=== PATIENT | female | born 1990 | race Caucasian/White ===

== ENCOUNTER 2023-11-24 13:53 | Emergency (ER) | payer BC ==
[~2023-11-24] VITALS: Ht 172.7 cm; Wt 117.9 kg
[2023-11-24] MEDS ORDERED: FAMOTIDINE 20 MG/2 ML VIAL IV ONE ×2 (13:58→14:02)
[2023-11-24] MEDS ORDERED: EPINEPHRINE HCL 1:1000 1ML 1 MG/ML AMP ONE (13:58)
[2023-11-24] MEDS ORDERED: DIPHENHYDRAMINE HCL INJ 50 MG/ML VIAL ONE (13:58)
[2023-11-24] MEDS ORDERED: METHYLPREDNISOLONE SOD SUCC 125 MG/2ML VIAL ONE (13:58)
[2023-11-24] MEDS ORDERED: SODIUM CHLORIDE 0.9% 1000ML 1,000 ML ONE (14:03)
[2023-11-24] MEDS: METHYLPREDNISOLONE SOD SUCC 125 MG/2ML VIAL IV ONE (14:12)
[2023-11-24] MEDS: DIPHENHYDRAMINE HCL INJ 50 MG/ML VIAL IV ONE (14:12)
[2023-11-24] MEDS: SODIUM CHLORIDE 0.9% 1000ML 1,000 ML IV ONE (14:13)
[2023-11-24] MEDS: FAMOTIDINE 20 MG/2 ML VIAL IV STA (14:13)
[2023-11-24 14:22] LABS: BASOPHILS % 0.2 % (0.0-1.0); EOSINOPHILS # (AUTO) 0.1 (0.0-0.4); EOSINOPHILS % 0.7 % (0.0-6.0); HEMATOCRIT 35.3 % (34.2-44.1); HEMOGLOBIN 11.3 g/dL (12.0-16.0); LYMPHOCYTES # (AUTO) 4.6 (1.0-3.2); LYMPHOCYTES % 36.9 % (18.0-39.1); MEAN CORPUSCULAR HEMOGLOBIN 25.1 pg (28-32); MEAN CORPUSCULAR VOLUME 78.4 fL (81-99); MONOCYTES # (AUTO) 0.9 (0.2-0.8); MONOCYTES % 7.1 % (4.4-11.3); NEUTROPHILS # (AUTO) 6.8 (2.1-6.9); NEUTROPHILS % 54.8 % (38.7-80.0); PLATELET COUNT 404 x10e3/uL (140-360); WHITE BLOOD COUNT 12.44 x10e3/uL (4.8-10.8)
[2023-11-24 14:33] LABS: ALBUMIN 3.9 g/dL (3.5-5.0); ANION GAP 18.5 mmol/L (8-16); BILIRUBIN,TOTAL 0.6 mg/dL (0.2-1.2); CREATININE, SERUM 0.74 mg/dL (0.57-1.11); POTASSIUM 3.5 mmol/L (3.5-5.1); TOTAL PROTEIN 7.9 g/dL (6.5-8.1)
[2023-11-24] MEDS ORDERED: METHYLPREDNISOLO4 M1 PO (16:18)
[2023-11-24] MEDS ORDERED: PEPCID20 MG PO (16:18)
[2023-11-24] MEDS ORDERED: EPINEPHRIN0.3 MG/0.3 IM (16:18)
[2023-11-24 17:20] VITALS: BP 138/76; PULSE 74; RESP 19; TEMP 98.1; O2SAT 100
== END 2023-11-24 17:22 | disposition home or self-care (01) ==
LOC: ER 14:03
DX: R21 Rash and other nonspecific skin eruption (principal); T78.40XA Allergy, unspecified, initial encounter; L29.9 Pruritus, unspecified
CPT/HCPCS: 36415; 80053; 85025; 99284; J0171; J1200; J2919; J7030